=== PATIENT | female | born 1950 | race Caucasian/White ===

== ENCOUNTER 2023-05-10 20:29 | Inpatient (IN) ==
[2023-05-10] MEDS ORDERED: PROPOFOL 200 MG/20 ML VIAL IV ONE ×2 (22:21→22:43)
[2023-05-10] MEDS ORDERED: fentaNYL 100 MCG/2 ML VIAL ONE (22:21)
[2023-05-10] MEDS ORDERED: ONDANSETRON 4 MG/2 ML VIAL ONE (22:28)
[2023-05-10] MEDS ORDERED: fentaNYL 100 MCG/2 ML VIAL IV PRN (22:56)
[2023-05-10] MEDS ORDERED: IPRATROPIUM/ALBUTEROL 3 ML AMPUL.NEB NEB PRN (22:56)
[2023-05-10] MEDS ORDERED: ONDANSETRON 4 MG/2 ML VIAL IV PRN ×2 (22:56→23:18)
[2023-05-10] MEDS: IOVERSOL 20 ML VIAL IJ ONE (23:00)
[2023-05-10] MEDS: LIDOCAINE 2% URO-JET 10 ML JEL.PF.APP UR ONE (23:12)
[2023-05-10] MEDS ORDERED: MAG HYDROX/AL HYDROX/SIMETH 30 ML ORAL.SUSP PO PRN (23:18)
[2023-05-10] MEDS ORDERED: BISACODYL 10 MG SUPP.RECT PR PRN (23:18)
[2023-05-11] MEDS: HYDROmorphone 1 MG/ML SYRINGE IV PRN (00:02)
[2023-05-11] MEDS: LACTATED RINGERS 1,000 ML IV SCH (00:05)
[2023-05-11] MEDS: DEXTROSE 5%-NS 1,000 ML IV SCH (00:13)
[2023-05-11] MEDS: ALPRAZOLAM 1 MG PO SCH (00:52)
[2023-05-11] MEDS: HYDROmorphone 0.5 MG/0.5 ML SYRINGE ONE (01:40)
[2023-05-11] MEDS: ALLOPURINOL 100 MG TABLET PO SCH ×3 (01:51→20:19)
[2023-05-11] MEDS: 0.9 % SODIUM CHLORIDE 1,000 ML IV ONE (03:00)
[2023-05-11] MEDS: NOREPINEPHRINE BITARTRATE 8 MG in 0.9 % SODIUM CHLORIDE 242 ML IV SCH (03:47)
[2023-05-11] MEDS: 0.9 % SODIUM CHLORIDE 250 ML IV SCH (03:49)
[2023-05-11] MEDS: NOREPINEPHRINE BITARTRATE 4 MG/4 ML VIAL IV ONE (04:25)
[2023-05-11] MEDS: 0.9 % SODIUM CHLORIDE 10 ML SYRINGE IV SCH ×2 (05:26→15:34)
[2023-05-11 05:56] LABS: Blood Urea Nitrogen 32 mg/dL (8-23); Calcium 8.4 mg/dL (8.6-10.4); Carbon Dioxide 16 mmol/L (22-30); Chloride 107 mmol/L (96-108); Glomerular Filtration Rate 24; Glucose 162 mg/dL (70-105)
[2023-05-11 06:26] LABS: Hematocrit 40.2 % (34.1-44.9); Hemoglobin 12.6 g/dL (11.2-15.7); Mean Cell Volume 97.6 fL (80.0-100.0); Mean Corpuscular HGB Conc 31.3 g/dL (31.0-36.0); Mean Platelet Volume 11.3 fL (8.8-12.5); Platelet Count 127 K/mcL (140-440); RBC 4.12 M/mcL (3.59-5.38); Red Cell Distribution Width 14.4 % (11.5-14.5); WBC 41.7 K/mcL (4.5-11.0)
[2023-05-11] MEDS: DEXTROSE 5%-1/2NS W/10MEQ KCL 1,000 ML IV SCH ×2 (07:47→14:00)
[2023-05-11] MEDS: PIPERACILLIN SODIUM/TAZOBACTAM 3.375 GM in DEXTROSE 5% IN WATER 100 ML IV SCH (07:53)
[2023-05-11] MEDS: ATENOLOL 25 MG TABLET PO SCH (08:12)
[2023-05-11] MEDS: LISINOPRIL 10 MG TABLET PO SCH (08:13)
[2023-05-11] MEDS ORDERED: MAGNESIUM CITRATE 100 MG PO SCH (09:00)
[2023-05-11] MEDS ORDERED: SULFAMETHOXAZOLE/TRIMETHOPRIM 1 TABLET PO SCH (09:00)
[2023-05-11] MEDS ORDERED: IPRATROPIUM/ALBUTEROL 3 ML AMPUL.NEB NEB PRN (09:08)
[2023-05-11] MEDS ORDERED: POTASSIUM CHLORIDE 40 MEQ in DEXTROSE 5% IN WATER 500 ML IV PRN (09:08)
[2023-05-11] MEDS ORDERED: POTASSIUM CHLORIDE 20 MEQ TABLET PO PRN ×2 (09:08)
[2023-05-11] MEDS ORDERED: POLYETHYLENE GLYCOL 3350 17 GM PACKET PO PRN (09:08)
[2023-05-11] MEDS ORDERED: ONDANSETRON 4 MG/2 ML VIAL IV PRN (09:08)
[2023-05-11] MEDS: Diclofenac Sodium 1 % gel TOPICAL SCH (09:10)
[2023-05-11] MEDS: LACTATED RINGERS 1,000 ML IV ONE (09:10)
[2023-05-11 09:40] LABS: Albumin 3.5 gm/dL (3.2-5.2); Phosphorous 3.2 mg/dL (2.5-4.5)
[2023-05-11] MEDS: FUROSEMIDE 20 MG TABLET PO SCH (09:49)
[2023-05-11 09:55] LABS: Albumin 3.2 gm/dL (3.2-5.2); Bilirubin,Direct 0.7 mg/dL (<0.3); Globulin 1.4 gm/dL (2.2-3.7)
[2023-05-11] MEDS: MAGNESIUM SULFATE 2 GM/50 ML BAG IV PRN (09:57)
[2023-05-11] MEDS: COLCHICINE 0.6 MG CAPSULE PO SCH (09:58)
[2023-05-11] MEDS: DONEPEZIL 10 MG TABLET PO SCH (09:58)
[2023-05-11] MEDS: SODIUM BICARBONATE 650 MG TABLET PO SCH (09:59)
[2023-05-11] MEDS: PANTOPRAZOLE 40 MG TABLET PO SCH (09:59)
[2023-05-11] MEDS: traMADol 50 MG TABLET PO PRN (09:59)
[2023-05-11] MEDS: ASPIRIN 81 MG TAB.CHEW PO SCH (10:00)
[2023-05-11] MEDS: VENLAFAXINE 75 MG CAP.XL.24H PO SCH (10:00)
[2023-05-11] MEDS ORDERED: ACETAMINOPHEN 650 MG/65 ML BAG IV PRN (14:09)
[2023-05-11] MEDS: ACETAMINOPHEN 325 MG TABLET PO PRN (15:35)
[2023-05-11] MEDS: DOCUSATE SODIUM 100 MG CAPSULE PO SCH (20:18)
[2023-05-11] MEDS: SIMVASTATIN 20 MG TABLET PO SCH (20:19)
[2023-05-11] MEDS: SENNOSIDES 1 TABLET PO PRN (20:32)
[2023-05-11] MEDS: MAGNESIUM HYDROXIDE 30 ML ORAL.SUSP PO PRN (20:32)
[2023-05-11] MEDS ORDERED: DOCUSATE SODIUM 100 MG CAPSULE PO SCH (21:00)
[2023-05-12 07:12] LABS: Basophils # (Auto) 0.02 K/mcL (0.00-0.30); Basophils % (Auto) 0.2 % (0.0-2.0); Eosinophils # (Auto) 0.11 K/mcL (0.00-0.70); Eosinophils % (Auto) 1.1 % (0.0-7.0); Hematocrit 32.6 % (34.1-44.9); Hemoglobin 10.1 g/dL (11.2-15.7); Lymphocytes # (Auto) 1.31 K/mcL (1.50-4.80); Lymphocytes % (Auto) 12.6 % (15.5-49.0); Mean Cell Volume 96.2 fL (80.0-100.0); Mean Platelet Volume 11.7 fL (8.8-12.5); Monocytes # (Auto) 0.42 K/mcL (0.10-0.90); Neutrophils % (Auto) 80.5 % (38.0-78.0); Platelet Count 52 K/mcL (140-440); RBC 3.39 M/mcL (3.59-5.38); Red Cell Distribution Width 14.6 % (11.5-14.5); WBC 10.4 K/mcL (4.5-11.0)
[2023-05-12 07:37] LABS: ALT/SGPT 27 U/L (<40); AST/SGOT 19 U/L (<32); Alkaline Phosphatase 95 U/L (39-117); Bilirubin,Direct 0.4 mg/dL (<0.3); Bilirubin,Total 0.7 mg/dL (0.1-1.0); Blood Urea Nitrogen 28 mg/dL (8-23); Calcium 7.7 mg/dL (8.6-10.4); Carbon Dioxide 19 mmol/L (22-30); Chloride 105 mmol/L (96-108); Globulin 1.5 gm/dL (2.2-3.7); Glomerular Filtration Rate 37; Glucose 164 mg/dL (70-105); Lactate Dehydrogenase 150 U/L (135-225); Phosphorous 2.1 mg/dL (2.5-4.5); Triglycerides 122 mg/dL (<150); Uric Acid 4.3 mg/dL (2.5-8.0)
[2023-05-12] MEDS ORDERED: ENOXAPARIN 40 MG/0.4 ML SYRINGE SQ SCH (09:00)
[2023-05-12] MEDS: DONEPEZIL 10 MG TABLET PO SCH (09:06)
[2023-05-12] MEDS: PHOSPHORUS 250 MG TABLET PO SCH (09:07)
[2023-05-12] MEDS: SODIUM BICARBONATE 650 MG TABLET PO SCH (09:07)
[2023-05-12] MEDS ORDERED: diphenhydrAMINE 25 MG CAPSULE PO PRN (09:12)
[2023-05-12] MEDS: MELATONIN 3 MG TABLET PO SCH (20:31)
[2023-05-13 06:18] LABS: Basophils # (Auto) 0.03 K/mcL (0.00-0.30); Basophils % (Auto) 0.4 % (0.0-2.0); Eosinophils % (Auto) 1.3 % (0.0-7.0); Hematocrit 31.9 % (34.1-44.9); Hemoglobin 9.9 g/dL (11.2-15.7); Lymphocytes % (Auto) 19.4 % (15.5-49.0); Mean Cell Volume 96.7 fL (80.0-100.0); Mean Platelet Volume 11.9 fL (8.8-12.5); Monocytes # (Auto) 0.41 K/mcL (0.10-0.90); Monocytes % (Auto) 5.3 % (1.0-12.0); Neutrophils % (Auto) 73.1 % (38.0-78.0); Platelet Count 50 K/mcL (140-440); Red Cell Distribution Width 14.5 % (11.5-14.5); WBC 7.7 K/mcL (4.5-11.0)
[2023-05-13 06:52] LABS: ALT/SGPT 18 U/L (<40); AST/SGOT 16 U/L (<32); Albumin/Globulin Ratio 1.4 (1.0-2.3); Alkaline Phosphatase 112 U/L (39-117); Bilirubin,Direct 0.4 mg/dL (<0.3); Bilirubin,Total 0.7 mg/dL (0.1-1.0); Blood Urea Nitrogen 23 mg/dL (8-23); Calcium 8.1 mg/dL (8.6-10.4); Carbon Dioxide 23 mmol/L (22-30); Chloride 106 mmol/L (96-108); Globulin 2.1 gm/dL (2.2-3.7); Glomerular Filtration Rate 41; Glucose 129 mg/dL (70-105); Lactate Dehydrogenase 166 U/L (135-225); Phosphorous 2.6 mg/dL (2.5-4.5); Triglycerides 149 mg/dL (<150); Uric Acid 3.5 mg/dL (2.5-8.0)
[2023-05-13] MEDS: cefTRIAXone 1 GM VIAL IV SCH (10:00)
[2023-05-14 07:22] LABS: Basophils # (Auto) 0.02 K/mcL (0.00-0.30); Basophils % (Auto) 0.3 % (0.0-2.0); Eosinophils # (Auto) 0.11 K/mcL (0.00-0.70); Eosinophils % (Auto) 1.6 % (0.0-7.0); Hematocrit 31.7 % (34.1-44.9); Hemoglobin 9.7 g/dL (11.2-15.7); Lymphocytes # (Auto) 1.62 K/mcL (1.50-4.80); Lymphocytes % (Auto) 23.2 % (15.5-49.0); Mean Cell Volume 99.1 fL (80.0-100.0); Mean Corpuscular HGB Conc 30.6 g/dL (31.0-36.0); Mean Platelet Volume 12.1 fL (8.8-12.5); Monocytes # (Auto) 0.53 K/mcL (0.10-0.90); Monocytes % (Auto) 7.6 % (1.0-12.0); Neutrophils % (Auto) 66.7 % (38.0-78.0); Platelet Count 70 K/mcL (140-440); Red Cell Distribution Width 14.3 % (11.5-14.5)
== END 2023-05-14 13:20 | DRG 689 ==
LOC: ED 20:29 → SSSU 22:14 → MEDSUR 23:47 → ICU 05-11 03:18 → MEDSUR 05-12 09:35
PROVIDERS: ADMIT Internal Medicine; ATTEND Internal Medicine